=== PATIENT | female | born 1965 | race Caucasian/White ===

== ENCOUNTER 2019-04-19 20:58 | Emergency (ER) | payer MEDICAID, OTHER ==
[~2019-04-19] VITALS: Ht 175.3 cm; Wt 108.9 kg
[~2019-04-19 20:58] MED LIST: TRAM50TA2 PO
[2019-04-19 21:50] VITALS: BP_SYST 136
--- NOTE | 2019-04-19 21:50 | NUR ---
Pt placed to ER hallway 1. Pt c/o redness, swelling, and pain to right posterior scalp x 1 day.
--- NOTE | 2019-04-19 22:10 | NUR ---
Dr. Webb at bedside.
[2019-04-19] MEDS ORDERED: IBUPROFEN 600 MG TABLET PO ONE (22:30)
[2019-04-19] MEDS ORDERED: CIPROFLOXACIN HCL 500 MG TABLET PO ONE (22:30)
--- NOTE | 2019-04-19 22:35 | NUR ---
Motrin 600 mg PO and Cipro 500 mg PO given at this time.
--- NOTE | 2019-04-19 23:00 | NUR ---
Pain reassessment from Motrin: 12/29
[2019-04-19 23:12] VITALS: BP_SYST 128
--- NOTE | 2019-04-19 23:12 | NUR ---
Patient given written and verbal discharge instructions and verbalizes understanding. ER MD discussed with patient the results and treatment provided. Patient in stable condition. ID arm band removed. Rx of Ibuprofen and Cipro given. Patient educated on pain management and to follow up with PMD. Pain Scale 3/10. Opportunity for questions provided and answered. Medication side effect fact sheet provided.
== END 2019-04-19 23:12 | disposition home or self-care (01) ==
LOC: SED 20:58
DX: L73.8 Other specified follicular disorders (principal); R03.0 Elevated blood-pressure reading, without diagnosis of hypertension; E78.00 Pure hypercholesterolemia, unspecified; Z88.0 Allergy status to penicillin; Z88.2 Allergy status to sulfonamides
CPT/HCPCS: 99283

== ENCOUNTER 2021-12-10 02:32 | Emergency (ER) | payer OTHER ==
[~2021-12-10] VITALS: Ht 175.3 cm; Wt 113.4 kg
[2021-12-10 03:25] VITALS: BP_SYST 117
--- NOTE | 2021-12-10 03:25 | NUR ---
Patient ambulatory to bed hallway with family for evaluation and treatment
--- NOTE | 2021-12-10 03:30 | NUR ---
ER at bedside examining patient.
--- NOTE | 2021-12-10 03:35 | NUR ---
Xray of left wrist done at bedside by [facility]
[2021-12-10] MEDS ORDERED: KETOROLAC TROMETHAMINE 60 MG/2 ML VIAL IM ONE (04:15)
[2021-12-10] MEDS ORDERED: NAPR-690 PO (04:31)
[2021-12-10 04:35] VITALS: BP_SYST 120
--- NOTE | 2021-12-10 04:35 | NUR ---
Patient given written and verbal discharge instructions by Dr Swann and verbalizes understanding. ER MD discussed with patient the results and treatment provided. Patient in stable condition. ID arm band removed. Rx of Naproxen [facility] to [facility] by ER MD. Patient educated on pain management and to follow up with PMD. Opportunity for questions provided and answered by Dr Swann.
== END 2021-12-10 04:35 | disposition home or self-care (01) ==
LOC: SED 02:32
DX: S63.502A Unspecified sprain of left wrist, initial encounter (principal); Z88.0 Allergy status to penicillin; Z88.2 Allergy status to sulfonamides; Z79.899 Other long term (current) drug therapy; W18.39XA Other fall on same level, initial encounter; Y93.89 Activity, other specified; Y92.89 Other specified places as the place of occurrence of the external cause; Y99.8 Other external cause status
CPT/HCPCS: 73100; 96372; 99283; J1885

== ENCOUNTER 2024-03-06 10:32 | Emergency (ER) | payer OTHER ==
[~2024-03-06] VITALS: Ht 175.3 cm; Wt 113.4 kg
[~2024-03-06 10:32] MED LIST changes: +NAPR-690 PO
[2024-03-06 10:33] VITALS: BP_SYST 95; PULSE 53; RESP 18; TEMP 97.5; O2SAT 100
[2024-03-06 12:08] LABS: BILIRUBIN,URINE NEGATIVE (NEGATIVE); BLOOD, URINE NEGATIVE (NEGATIVE); CLARITY/URINE CLEAR (CLEAR); COLOR,URINE YELLOW (YELLOW); GLUCOSE,URINE NEGATIVE (NEGATIVE); KETONES,URINE NEGATIVE (NEGATIVE); LEUKOCYTE ESTERASE ,URINE 1+ (NEGATIVE); NITRITE, URINE NEGATIVE (NEGATIVE); PROTEIN URINE NEGATIVE (NEGATIVE); UROBILINOGEN,URINE 0.2 (0.2-1.0)
[2024-03-06 12:18] LABS: BACTERIA,URINE FEW /HPF (None Seen); RBC,URINE 0-3 /HPF (0-3)
[2024-03-06] MEDS: NACL 0.9% 1,000 ML IV ONE (13:42)
[2024-03-06] MEDS: KETOROLAC TROMETHAMINE 30 MG VIAL IVP ONE (13:47)
[2024-03-06] MEDS: ONDANSETRON HCL 4 MG/2 ML VIAL IVP ONE (13:48)
[2024-03-06 13:51] LABS: BASOPHILS % (AUTO) 0.4 % (0.0-2.0); EOSINOPHILS # (AUTO) 0.1 K/uL (0.0-0.4); EOSINOPHILS % (AUTO) 0.8 % (0.0-4.0); HEMATOCRIT 37.4 % (36-48); LYMPHOCYTES # (AUTO) 1.5 K/uL (1.0-5.5); LYMPHOCYTES % (AUTO) 15.7 % (20.5-51.5); MEAN CORPUSCULAR HEMOGLOBIN 32 pg (27-31); MEAN CORPUSCULAR HGB CONC 35 % (32-36); MEAN CORPUSCULAR VOLUME 91 fL (79.0-98.0); MONOCYTES # (AUTO) 0.6 K/uL (0.0-1.0); MONOCYTES % (AUTO) 6.2 % (1.7-9.3); NEUTROPHILS # (AUTO) 7.2 K/uL (1.8-7.7); NEUTROPHILS % (AUTO) 76.9 % (40.0-70.0); PLATELET COUNT (AUTO) 267 K/uL (130-430); RED BLOOD CELL COUNT(AUTO) 4.11 MIL/uL (4.2-6.2); RED CELL DISTRIBUTION WIDTH 12.7 % (9.0-15.0); WHITE BLOOD COUNT (AUTO) 9.4 K/uL (4.8-10.8)
[2024-03-06 14:05] LABS: ALBUMIN 3.2 g/dL (3.4-4.8); BILIRUBIN,DIRECT 0.2 mg/dL (0.0-0.3); CALCIUM 9.1 mg/dL (8.4-11.0); POTASSIUM 4.1 mmol/L (3.5-5.1); TOTAL BILIRUBIN 0.8 mg/dL (0.0-1.0); TOTAL PROTEIN, SERUM 8.2 g/dL (6.4-8.3)
[2024-03-06] MEDS ORDERED: HYDR-3917 PO (14:15)
[2024-03-06] MEDS ORDERED: METR-154 PO (14:15)
[2024-03-06] MEDS ORDERED: CIPR500T5 PO (14:15)
[2024-03-06 15:03] VITALS: BP_SYST 95; PULSE 53; RESP 18; TEMP 97.5; O2SAT 100
== END 2024-03-06 14:59 | disposition home or self-care (01) ==
LOC: SED 10:32
DX: K57.92 Diverticulitis of intestine, part unspecified, without perforation or abscess without bleeding (principal); R10.30 Lower abdominal pain, unspecified; Z88.0 Allergy status to penicillin; Z88.2 Allergy status to sulfonamides
CPT/HCPCS: 99285; 74176; 96374; 96361; 80076; 80048; 81001; 83690; 85025; 87086; 36415; 81000; 81015; J1885; J7030